=== PATIENT | male | born 1970 | race African-American/Black ===

== ENCOUNTER 2018-03-23 12:27 | Emergency (ER) | payer SELFPAY ==
[~2018-03-23] VITALS: Ht 167.6 cm; Wt 69.0 kg
[2018-03-23 12:37] VITALS: BP 104/72
== END 2018-03-23 13:51 | disposition left against medical advice (07) ==
LOC: ER 13:25
DX: T40.7X1A Poisoning by cannabis (derivatives), accidental (unintentional), initial encounter (principal); Z53.21 Procedure and treatment not carried out due to patient leaving prior to being seen by health care provider; Y92.89 Other specified places as the place of occurrence of the external cause